=== PATIENT | male | born 1955 | race Caucasian/White ===

== ENCOUNTER 2017-06-16 12:11 | Inpatient (IN) | payer MEDICARE ==
[2017-06-16] MEDS ORDERED: ONDANSETRON 4 MG/2 ML VIAL IVP PRN (21:37)
[2017-06-16] MEDS ORDERED: ALPRAZolam 0.25 MG TAB PO PRN (21:37)
[2017-06-16] MEDS ORDERED: ACETAMINOPHEN TAB 325 MG TAB PO PRN (21:37)
[2017-06-16] MEDS ORDERED: Potassium Replacement Protocol 1 EACH MISC MISCELLANE PRN (21:45)
[2017-06-16] MEDS ORDERED: Magnesium Replacement Protocol 1 EACH MISC MISCELLANE PRN (21:45)
[2017-06-16] MEDS ORDERED: FUROSEMIDE 40 MG TAB PO SCH (22:00)
[2017-06-16 22:33] LABS: Basophils % (A) 0 %; Eosinophils # (A) 0.2 k/uL (0-0.7); Eosinophils % (A) 2 %; HCT 28.8 % (39.0-53.0); HGB 9.3 gm/dL (13.0-17.5); Hypochromasia Slight; Lymphocytes # (A) 1.1 k/uL (1.0-4.8); Lymphocytes % (A) 11 %; MCH 26.9 pg (25.0-35.0); MCHC 32.4 g/dL (31.0-37.0); MCV 83.1 fL (80.0-100.0); Mean Platelet Volume 8.1; Monocytes # (A) 0.5 k/uL (0-1.0); Monocytes % (A) 5 %; Neutrophils # (A) 8.4 k/uL (1.3-7.7); Neutrophils % (A) 81 %; Platelet Count 267 k/uL (150-450); Poikilocytosis Slight; RBC 3.47 m/uL (4.30-5.90); RDW 14.3 % (11.5-15.5); WBC 10.4 k/uL (3.8-10.6)
[2017-06-16 22:41] LABS: Anion Gap 4 mmol/L; Blood Urea Nitrogen 20 mg/dL (9-20); Calcium 7.9 mg/dL (8.4-10.2); Carbon Dioxide 31 mmol/L (22-30); Chloride 103 mmol/L (98-107); Glucose 102 mg/dL (74-99); Magnesium 1.6 mg/dL (1.6-2.3); Potassium 3.9 mmol/L (3.5-5.1); Sodium 138 mmol/L (137-145)
[2017-06-16 23:28] LABS: Prothrombin Time 10.2 sec (9.0-12.0)
[2017-06-16] MEDS: HEPARIN SODIUM,PORCINE 5,000 UNIT/ML 1 ML VIAL SQ SCH (23:39)
[2017-06-16] MEDS: METOPROLOL TARTRATE 25 MG TAB PO SCH (23:39)
[2017-06-16] MEDS: ATORVASTATIN 40 MG TAB PO SCH (23:39)
[2017-06-17 06:08] LABS: Glucose,Whole Blood 110 mg/dL (75-99)
[2017-06-17] MEDS: INSULIN ASPART 100 UNIT/ML 1 ML 10 ML VIAL SQ SCH ×7 (06:18→21:48)
[2017-06-17] MEDS: METOPROLOL TARTRATE 25 MG TAB PO SCH ×2 (06:26→20:59)
[2017-06-17] MEDS: PANTOPRAZOLE 40 MG TABLET PO SCH (06:26)
[2017-06-17] MEDS: ASPIRIN 81 MG PO SCH (06:26)
[2017-06-17 06:55] LABS: Basophils % (A) 0 %; Eosinophils # (A) 0.2 k/uL (0-0.7); Eosinophils % (A) 3 %; HCT 25.9 % (39.0-53.0); HGB 8.1 gm/dL (13.0-17.5); Hypochromasia Slight; Lymphocytes % (A) 10 %; MCHC 31.2 g/dL (31.0-37.0); MCV 83.3 fL (80.0-100.0); Mean Platelet Volume 8.1; Monocytes # (A) 0.4 k/uL (0-1.0); Monocytes % (A) 4 %; Neutrophils # (A) 7.7 k/uL (1.3-7.7); Neutrophils % (A) 82 %; Platelet Count 254 k/uL (150-450); Poikilocytosis Slight; RBC 3.11 m/uL (4.30-5.90); RDW 14.6 % (11.5-15.5); WBC 9.4 k/uL (3.8-10.6)
[2017-06-17 07:14] LABS: Anion Gap 7 mmol/L; Blood Urea Nitrogen 19 mg/dL (9-20); Calcium 7.6 mg/dL (8.4-10.2); Carbon Dioxide 28 mmol/L (22-30); Chloride 103 mmol/L (98-107); Glucose 102 mg/dL (74-99); Sodium 138 mmol/L (137-145)
[2017-06-17] MEDS ORDERED: AMOXIC-POT CLAV 500-125 MG 1 EACH TAB PO SCH (09:00)
[2017-06-17] MEDS: HYDROcodone/APAP 5-325MG 1 EACH TAB PO PRN ×2 (09:04→20:57)
--- NOTE | 2017-06-17 10:20 | XR ---
EXAMINATION TYPE: XR chest 1V portable DATE OF EXAM: 06/17/2017 COMPARISON: NONE INDICATION: Heart catheterization, CHF TECHNIQUE: Single frontal view of the chest is obtained. FINDINGS: The heart size is enlarged. The pulmonary vasculature is prominent. There is a right pleural effusion. A consolidation is in the right perihilar region. Consider atelect asis or atypical pulmonary edema. Some mild atelectasis at the left base. IMPRESSION: 1. Clinical correlation recommended for mild congestive heart failure. Right perihilar consolidation may be present. Small right pleural effusion may be present. Follow-up examinations are recommended.
[2017-06-17] MEDS ORDERED: diphenhydrAMINE 25 MG CAP PO PRN (11:22)
[2017-06-17 11:24] LABS: Glucose,Whole Blood 134 mg/dL (75-99)
[2017-06-17] MEDS ORDERED: methylPREDNISolone SOD SUCCI 125 MG/2 ML VIAL IV STA (11:24)
[2017-06-17] MEDS ORDERED: fentaNYL (PF) 50 MCG/ML 2 ML AMP ONE (12:12)
[2017-06-17] MEDS ORDERED: VERAPAMIL 2.5 MG/ML 2 ML AMP ONE (12:12)
[2017-06-17] MEDS ORDERED: LIDOCAINE 2% INJ 20 MG/ML (20 ML MDV) ONE (12:12)
[2017-06-17] MEDS ORDERED: MIDAZOLAM 2 MG/2 ML VIAL ONE (12:12)
[2017-06-17] MEDS ORDERED: HEPARIN SODIUM 1,000 UN/ML (10ML VL) ONE (12:12)
[2017-06-17] MEDS ORDERED: fentaNYL (PF) 50 MCG/ML 2 ML AMP IV ONE (12:40)
[2017-06-17] MEDS ORDERED: LIDOCAINE 2% INJ 20 MG/ML SQ ONE (12:50)
[2017-06-17] MEDS ORDERED: VERAPAMIL SYRINGE (5 MG/10 ML) INTRAARTER ONE (12:53)
[2017-06-17] MEDS ORDERED: IOHEXOL 350 MG/ML 125ML BOTTLE INJ ONE (13:07)
[2017-06-17] MEDS ORDERED: SODIUM CHLORIDE 0.9% 500 ML IV ONE (13:10)
[2017-06-17] MEDS ORDERED: RX INFO: IV CONTRAST WAS GIVEN 1 EACH MISC MISCELLANE PRN (13:29)
[2017-06-17] MEDS ORDERED: SODIUM CHLORIDE 0.9% 1,000 ML IV SCH (13:30)
[2017-06-17] MEDS: TAMSULOSIN 0.4 MG CAP.ER.24H PO SCH (13:42)
[2017-06-17] MEDS: HEPARIN SODIUM,PORCINE 5,000 UNIT/ML 1 ML VIAL SQ SCH ×2 (13:42→20:59)
--- NOTE | 2017-06-17 14:19 | CC ---
CARDIAC CATHETERIZATION REPORT Mr. Macias is 61-year-old male who has not seen a physician in many years, who presented to the hospital at [facility] with cardiac arrest. Underwent CPR. Was intubated and subsequently neurological recovered. He was extubated and hemodynamically he was stable. He had evidence of myocardial infarction by enzymatic changes and an underlying left bundle branch block of unknown duration. On presentation, he had severe renal failure and severely elevated hemoglobin A1c. His renal failure resolved. Because of the presentation and the findings, recommendation made regarding cardiac catheterization. The procedures as well as risks and complications were discussed with the patient who is in full understanding and agreement. PROCEDURE: Patient was brought to collaborating supervising physician in a fasting semisedated state after receiving fentanyl and Benadryl and achieving moderate conscious sedated state, he was draped and prepped in conventional fashion using Xylocaine anesthesia and Seldinger technique, a 6-Indonesian sheath was introduced in the right radial artery. Selective right and left coronary angiography performed using 5-Indonesian 3 and half bend right Melissa and 4 bend left Melissa catheter. Multiple views of the coronary artery including hemiaxial was obtained. Following that, the 6-Indonesian tight pigtail catheter was introduced into the left ventricle and a 30 degree HUMPHREY view of the left ventricle was obtained. Following that, the catheter and sheath were removed. Hemostasis was obtained with deployment of a TR band. There was no immediate complication. Patient is returned to his room in stable condition. Of note, the patient received 4500 units of intravenous heparin as well as intra-arterial verapamil. FINDINGS: FLUOROSCOPY: There was severe calcification involving the left main and the LAD. 1. Left main: This is a large size vessel bifurcating into left circumflex, left anterior descending artery. Left main coronary artery has no evidence of high- grade stenosis. 2. Left anterior descending artery: This is a large-sized vessel reaching to the apex with a wraparound apex segment giving rise to a moderate-sized diagonal branch in mid segment. In the proximal segment of the LAD, there is 90% stenosis. There is not a plaque in the mid LAD of about 60%. 3. Left circumflex: This is a nondominant vessel giving rise to a large obtuse marginal branch. The left circumflex in the mid segment has 2 tandem lesions of about 95%. The rest of the vessel has no high-grade stenosis. 4. Right coronary artery: This vessel is totally occluded in the distal segment with no significant antegrade flow. 5. Collaterals: There are collaterals from the left coronary system toward the distal PDA. 6. Left ventriculogram: Left ventriculogram was performed in the 30 degree HUMPHREY view and revealed dilated left ventricle. The inferoapical wall is severely hypokinetic to akinetic. There was no significant mitral regurgitation. The anterior wall is mildly hypokinetic. The ejection fraction is about 30%. 7. HEMODYNAMICS: There was no gradient across the aortic valve. The left ventricle end-diastolic pressure was 20-24 mmHg. CONCLUSION: 1. Severe triple-vessel disease with occluded right coronary artery of unknown duration. 2. Severely impaired left ventricular systolic function. RECOMMENDATION: In view of the findings, the anatomy as well as the history of diabetes and severe cardiomyopathy, I have recommended to be evaluated for coronary artery bypass grafting. Those findings and recommendations were discussed with the patient and his family who are in full understanding and agreement. DURATION OF THE PROCEDURE: 23 minutes. PERI / ROMEO: [id number] /
[2017-06-17] MEDS ORDERED: MD COMMUNICATION TO PHARMACY 1 EACH MISC PO ONE ×2 (14:26)
[2017-06-17 16:48] LABS: Glucose,Whole Blood 270 mg/dL (75-99)
[2017-06-17] MEDS: MICONAZOLE NITRATE 2% CREAM 14 GM TUBE TOPICAL SCH ×2 (17:01→21:49)
[2017-06-17] MEDS: PIPERACILLIN-TAZOBACTAM 3.375 GM in DEXTROSE/WATER 1 50ML.BAG IVPB SCH ×2 (17:04→23:30)
[2017-06-17] MEDS: LINAGLIPTIN 5 MG TABLET PO SCH (17:06)
[2017-06-17 19:38] LABS: Hemoglobin A1C 13.6 % (4.0-6.0)
[2017-06-17] MEDS: ATORVASTATIN 40 MG TAB PO SCH (20:59)
[2017-06-17] MEDS ORDERED: INSULIN DETEMIR 100 UNIT/ML 10 ML VIAL SQ SCH (21:00)
[2017-06-17] MEDS: FUROSEMIDE 10 MG/ML 4 ML VIAL IV SCH (21:03)
--- NOTE | 2017-06-17 21:03 | P.HPIM ---
History of Present Illness H&P Date: 06/17/17 Chief Complaint: Elevated troponin and altered mental status Patient is a 61-year-old male with a known history of diabetes type 2 and noncompliance with medications was initially admitted to [facility] about a week ago with severe DKA, acute kidney injury with creatinine level 15.0 and uncontrolled diabetes mellitus with HbA1c 17 and altered mental status. Patient was initially intubated due to acute hypoxic respiratory failure on admission and was actually extubated. Patient was found to have reduced ejection fraction on 2-D echocardiogram done at [facility]. With ejection fraction 30-35%. Patient was also found to have elevated troponin level and patient was transferred to [facility] for further cardiac workup. Currently patient denied any chest pain or shortness of breath. Chest x-ray showed clinical correlation recommended for mild CHF. Right perihilar consolidation may be present. Small right pleural effusion may be present. Patient was also having altered mental status and confused at times. Neurologic workup including CT head was negative at [facility]. Patient was seen by cardiology and is planning for cardiac catheterization today. Otherwise blood sugars controlled with Lantus and preprandial insulin dose along with sliding scale. Review of Systems Constitutional: Patient denies any fever or chills . No generalized weakness or weight loss. Abdomen: Patient denied nausea vomiting and diarrhea and abdominal pain. Cardiovascular: Patient denies any chest pain or short of breath no palpitations. Respiratory: patient denied any cough is from production. No shortness of breath Neurologic: Patient denied any numbness or tingling headache. Musculoskeletal: Patient denies any complaints of joint swelling or deformity. Skin: Negative Psychiatric: Confusion altered mental status Endocrine: No heat or cold intolerance. No recent weight gain. Genitourinary: No dysuria or hematuria. All other 14 point ROS negative except the above Past Medical History Past Medical History: No Reported History Additional Past Medical History / Comment(s): possible undiagnosed diabetes mellitus according to [facility] Medical chart. 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 Past Anesthesia/Blood Transfusion Reactions: No Reported Reaction Past Psychological History: Anxiety Smoking Status: Never smoker Past Alcohol Use History: None Reported Past Drug Use History: None Reported - Past Family History Father Family Medical History: Myocardial Infarction ([place]) Additional Family Medical History / Comment(s): from heart attack Medications and Allergies Home Medications Medication Instructions Recorded Confirmed Type No Known Home Medications [No 06/16/17 06/16/17 History Known Home Medications] Allergies Allergy/AdvReac Type Severity Reaction Status Date / Time Mushroom Allergy Severe Anaphylaxis Verified 06/16/17 22:04 Physical Exam Vitals: Vital Signs Temp Pulse Resp BP BP Pulse Ox 06/17/17 08:00 98.6 F 79 16 94/57 93 L 06/17/17 04:32 98.2 F 06/17/17 03:55 100.0 F H 83 20 118/67 93 L 06/16/17 23:33 99.1 F 91 24 116/68 96 06/16/17 20:00 97.3 F L 88 20 99/58 93 L Intake and Output 06/16/17 06/17/17 06/17/17 22:59 06:59 14:59 Intake Total 100 Output Total 675 Balance -575 Intake: Oral 100 Output: Urine 675 Other: Voiding Method Indwelling Catheter Indwelling Catheter Indwelling Catheter # Voids 1 Weight 94.2 kg 85.5 kg PHYSICAL EXAMINATION: Patient is lying in the bed comfortably, no acute distress, awake alert and oriented.. HEENT: Normocephalic. Neck is supple. Pupils reactive. Nostrils clear. Oral cavity is moist. Ears reveal no drainage. Neck reveals no JVD, carotid bruits, or thyromegaly. CHEST EXAMINATION: Trachea is central. Symmetrical expansion. Lung murguia clear to auscultation and percussion. CARDIAC: Normal S1, S2 with no gallops. No murmurs ABDOMEN: Soft. Bowel sounds normal. No organomegaly. No abdominal bruits. Extremities: reveal no edema. No clubbing or cyanosis Neurologically awake, alert, oriented x3 with well-coordinated movements. No focal deficits noted Skin: No rash or skin lesions. Psychiatric: Cooperative. Nonsuicidal Musculoskeletal: No joint swelling or deformity. Normal range of motion. Results CBC & Chem 7: 06/17/17 06:00 06/17/17 06:00 Labs: Abnormal Lab Results - Last 24 Hours (Table) 06/16/17 06/16/17 06/16/17 Range/Units 22:20 22:20 22:20 RBC 3.47 L (4.30-5.90) m/uL Hgb 9.3 L (13.0-17.5) gm/dL Hct 28.8 L (39.0-53.0) % Neutrophils # 8.4 H (1.3-7.7) k/uL Carbon Dioxide 31 H (22-30) mmol/L Glucose 102 H (74-99) mg/dL POC Glucose (mg/dL) (75-99) mg/dL Calcium 7.9 L (8.4-10.2) mg/dL Troponin I 0.961 H* (0.000-0.034) ng/mL 06/17/17 06/17/17 06/17/17 Range/Units 05:57 06:00 06:00 RBC 3.11 L (4.30-5.90) m/uL Hgb 8.1 L (13.0-17.5) gm/dL Hct 25.9 L (39.0-53.0) % Neutrophils # (1.3-7.7) k/uL Carbon Dioxide (22-30) mmol/L Glucose 102 H (74-99) mg/dL POC Glucose (mg/dL) 110 H (75-99) mg/dL Calcium 7.6 L (8.4-10.2) mg/dL Troponin I (0.000-0.034) ng/mL Thrombosis Risk Factor Assmnt - DVT/VTE Prophylaxis DVT/VTE Prophylaxis: Pharmacologic Prophylaxis ordered - Choose All That Apply Any of the Below Risk Factors Present?: Yes Each Factor Represents 1 point: Age 41-60 years, Swollen legs (current) Thrombosis Risk Factor Assessment Total Risk Factor Score: 2 Thrombosis Risk Factor Assessment Level: Low Risk Assessment and Plan Assessment: Elevated troponin likely due to non-ST elevated [place] Acute CHF with systolic dysfunction ejection fraction 30-35%. Elevated BNP Normocytic anemia Recent Acute kidney injury. Was resolved Recent DKA resolved Diabetes type 2 Hypertension Altered mental status possible metabolic encephalopathy DVT prophylaxis Plan: Patient will be continued on telemetry monitoring. Continue with Lasix and cardiology is planning for catheterization. Serial EKG. Monitor renal function and insulin dosing for better blood sugar control. Neurology was consulted as well for his altered sensorium. We will continue the current management and further recommendations based on the clinical course. Discussed with his at bedside in detail. Time with Patient: Greater than 30
--- NOTE | 2017-06-17 21:12 | US ---
EXAMINATION TYPE: US carotid duplex BILAT DATE OF EXAM: 06/17/2017 COMPARISON: NONE CLINICAL HISTORY: pre-op cardiac surgery. Technically difficult study, patient unable to cooperate with examiner although patient tried, at mikael es he was uncooperative. EXAM MEASUREMENTS: RIGHT: Peak Systolic Velocity (PSV) cm/sec ----- Right CCA: 82.0 ----- Right ICA: 71.6 ----- Right ECA: 96.8 ICA/CCA ratio: 0.9 RIGHT: End Diastole cm/sec ----- Right CCA: 16.8 ----- Right ICA: 14.2 ----- Right ECA: 11.1 LEFT: Peak Systolic Velocity (PSV) cm/sec ----- Left CCA: 70.9 ----- Left ICA: 70.4 ----- Left ECA: 100.5 ICA/CCA ratio: 1.0 LEFT: End Diastole cm/sec ----- Left CCA: 20.8 ----- Left ICA: 25.2 ----- Left ECA: 5.2 VERTEBRALS (direction of flow): Right Vertebral: Antegrade Left Vertebral: Antegrade Rhythm: Normal No significant velocity elevations. IMPRESSION: There is antegrade flow in the vertebral arteries. The images and measurements suggest l ess than 25% stenosis in both internal carotid arteries. Criteria for Assigning % of Stenosis / Diameter reduction (Estimation based on the indirect measurements of the internal carotid artery velocities (ICA PSV). 1. Normal (no stenosis)=ICA PSV < 125 cm/s: ratio < 2.0: ICA EDV<40 cm/s. 2. Less than 50% stenosis=ICA PSV < 125 cm/s: ratio < 2.0: ICA EDV<40 cm/s. 3. 50 to 69% stenosis=ICA PSV of 125 to 230 cm/s: ration 2.0 ? 4.0: ICA EDV 40-100 cm/s. 4. Greater than 70% stenosis to near occlusion= ICA PSV > 230 cm/s: ratio > 4.0: ICA EDV > 100 cm/s. 5. Near occlusion= ICA PSV velocities may be low or undetectable: variable ratio and ICA EDV. 6. Total occlusion=unable to detect flow.
[2017-06-17 21:15] LABS: Glucose,Whole Blood 331 mg/dL (75-99)
--- NOTE | 2017-06-17 23:01 | CONS ---
CONSULTATION DATE OF SERVICE: 06/17/2017 REASON FOR CONSULTATION: 1. Pneumonia. 2. Bilateral groin area cutaneous candidiasis. HISTORY OF PRESENT ILLNESS: The patient is a 61-year-old male who initially presented to [facility] after the patient had a cardiac arrest at home, status post CPR in the field. Subsequently he was successfully resuscitated and was extubated. The patient did have evidence of bacteremia on admission; it was thought to be more likely contamination with multiple pathogens. Blood culture was drawn in the ER. He did have a fever with evidence of pneumonia, likely of aspiration etiology, for which the patient was treated with Zosyn and recently transitioned to oral Augmentin. Subsequently the patient was transferred to [facility] for cardiac catheterization, which is scheduled for this afternoon. The patient was seen on rounds early this morning. Patient did have a low-grade fever last night. The patient was mostly complaining of pain in his bilateral groin and testicular area. The pain started yesterday. Pain is described to be burning, 5 to 6 out of 10, and no radiation. There is no skin breakdown or any drainage. He continues to have some cough but is not bringing up any sputum. No worsening chest pain. No nausea, no vomiting and no diarrhea. REVIEW OF SYSTEMS: CONSTITUTIONAL: Positive for weakness and a low-grade fever. EYES: No complaint. ENT: No complaint. RESPIRATORY: As per HPI. CARDIOVASCULAR: As per HPI. GENITOURINARY: As per HPI. GASTROINTESTINAL: No complaint. MUSCULOSKELETAL: No complaint. INTEGUMENTARY: No complaint. PSYCHOLOGICAL: No complaint. ENDOCRINE: No complaint. NEUROLOGICAL: No complaint. PAST MEDICAL HISTORY: 1. Hypertension. 2. Benign prostatic hypertrophy. 3. Diabetes mellitus, insulin-dependent. 4. Hyperlipidemia. 5. Gastroesophageal reflux disease. SOCIAL HISTORY: Denies smoking, drinking or drug use. Currently lives with his . FAMILY HISTORY: No pertinent findings noticed. ALLERGIES: NO KNOWN DRUG ALLERGIES. CURRENT MEDICATIONS: 1. Tylenol. 2. [place]. 3. Xanax. 4. Aspirin. 5. Lipitor. 6. Benadryl. 7. Lasix. 8. NovoLog. 9. Levemir. 10.Tradjenta. 11.Zestril. 12.Lopressor. 13.Zofran. 14.Protonix. 15.Augmentin. 16.Flomax. PHYSICAL EXAMINATION: Blood pressure 118/70 with a pulse of 90, temperature 97. He is 95% on room air. General description is a middle-aged male lying in bed in no distress. HEENT EXAMINATION: Slight pallor. No scleral icterus. Oral mucosa membrane is dry. NECK: Trachea is central. No thyromegaly. LUNGS: Unlabored breathing. Decreased breath sounds in the bases. No wheeze. HEART: S1, S2. Regular rate and rhythm. ABDOMEN: Soft. No tenderness. No guarding or rigidity. Bilateral groin area with evidence of cutaneous candidiasis but no cellulitis. EXTREMITIES: No edema of the feet. SKIN EXAMINATION: No rash or mass palpable. Neurologically patient is awake, alert, oriented x3. Mood and affect normal. LABS: Hemoglobin 8.1, white count 9.4 with a BUN of 19, creatinine 0.97. DIAGNOSTIC IMPRESSION AND PLAN: 1. Patient with a component of aspiration pneumonia likely, after which the patient did have cardiac arrest and resuscitation. Sputum was negative for any resistant pathogen. However, once transitioned to oral Augmentin the patient did have a fever. 2. Patient with bilateral groin area of cutaneous candidiasis. PLAN: 1. We will try to obtain sputum for Gram stain and culture and sensitivity. 2. If the patient spikes any further fever, to be re-cultured . 3. Will discontinue the Augmentin and start the patient on Zosyn 3.375 grams IV q.8 hours. 4. Miconazole cream to bilateral groin area. 5. We will follow up on the clinical condition and culture to further adjust medication if needed. was present at the bedside. Her questions and concerns were answered. MMODL / IJN: [id number] /
[2017-06-18 04:28] VITALS: BP 124/68; PULSE 77; RESP 16; TEMP 96.6
[2017-06-18] MEDS: PANTOPRAZOLE 40 MG TABLET PO SCH (06:03)
[2017-06-18 06:24] LABS: Glucose,Whole Blood 290 mg/dL (75-99)
[2017-06-18] MEDS: INSULIN ASPART 100 UNIT/ML 1 ML 10 ML VIAL SQ SCH ×2 (06:50)
--- NOTE | 2017-06-18 07:32 | XR ---
EXAMINATION TYPE: XR chest 2V DATE OF EXAM: 06/18/2017 COMPARISON: 06/17/2017 HISTORY: 61-year-old male preop cardiac surgery TECHNIQUE: Frontal and lateral views FINDINGS: Persistent very low lung volumes. Heart suspected mildly enlarged. Perihilar interstitial patchy airs pace opacities persist, right greater than left with slight interval improvement. Continued elevation of the right hemidiaphragm. Small effusions persist. IMPRESSION: 1. Continued marked hypoventilatory changes along with asymmetric elevation of the right hemidiaphrag m. 2. Suspect continued CHF with pulmonary vascular congestion/interstitial edema with slight improvemen t from prior. More confluent opacity at the right hilum persists. 3. Small effusions with adjacent atelectasis and/or consolidation.
--- NOTE | 2017-06-18 08:22 | PN ---
PROGRESS NOTE Mr. Macias a 61-year-old male who presented to [facility] with sudden cardiac arrest, was intubated and subsequently extubated. He had evidence of severe ischemic cardiomyopathy as well as non ST-segment elevation myocardial infarction. His baseline EKG showed left bundle branch block. He underwent cardiac catheterization that revealed severe triple-vessel coronary artery disease with severely impaired left ventricular systolic function. He was referred for surgical consultation for coronary artery bypass grafting in view of the diabetes and the severe triple-vessel disease. This morning he is feeling well. He is denying any chest pain. His breathing has been stable. He denies any dizziness or palpitation. He denies any nausea or vomiting. I reviewed with him as well as his the findings in detail. The patient is adamantly refusing any surgical intervention or angioplasty or stenting. He is insisting on going home today understanding the risks. I have discussed those finding in detail with him. I have discussed with him that if he chooses to leave today, he will be leaving AGAINST MEDICAL ADVICE. He will be further evaluated by his primary care physician and further recommendations will be done at that time. MMPIERREL / LIGIAN: [id number] / TRACY
[2017-06-18] MEDS: METOPROLOL TARTRATE 25 MG TAB PO SCH (08:50)
[2017-06-18] MEDS: ASPIRIN 81 MG PO SCH (08:50)
[2017-06-18] MEDS: TAMSULOSIN 0.4 MG CAP.ER.24H PO SCH (08:51)
[2017-06-18] MEDS ORDERED: LISINOPRIL 5 MG TAB PO SCH (09:00)
[2017-06-18] MEDS ORDERED: LISINOPRIL 2.5 MG TAB PO SCH (09:00)
[2017-06-18] MEDS: PIPERACILLIN-TAZOBACTAM 3.375 GM in DEXTROSE/WATER 1 50ML.BAG IVPB SCH (09:01)
[2017-06-18] MEDS: HEPARIN SODIUM,PORCINE 5,000 UNIT/ML 1 ML VIAL SQ SCH (09:01)
[2017-06-18] MEDS: LINAGLIPTIN 5 MG TABLET PO SCH (09:01)
[2017-06-18] MEDS: FUROSEMIDE 10 MG/ML 4 ML VIAL IV SCH (09:01)
[2017-06-18] MEDS: MICONAZOLE NITRATE 2% CREAM 14 GM TUBE TOPICAL SCH (09:02)
--- NOTE | 2017-06-18 09:59 | P.GSCN ---
<Karolyn Ruff - Last Filed: 06/18/17 09:47> History of Present Illness Consult date: 06/17/17 Reason for Consult: Severe triple vessel coronary artery disease, surgical revascularization recommendations. Requesting physician: Macey Lopez History of present illness: This 61-year-old gentleman with a previous medical history of diabetes, systolic and diastolic heart failure, chronic kidney disease, and cardiomyopathy presented to [facility] via EMS after cardiopulmonary arrest. He was successfully resuscitated, eventually extubated , and remained hemodynamically stable. The patient demonstrated evidence of myocardial infarction by increase in cardiac enzymes and left bundle branch block present on his EKG. He was transferred to [facility] to undergo cardiac catheterization which demonstrated 90% stenosis in the proximal LAD, 60 % stenotic plaque in the mid LAD, 2 lesions in the left circumflex demonstrating 95% stenosis, totally occluded right coronary artery, and collaterals from the left coronary system toward the distal PDA. LV gram was completed demonstrating a dilated left ventricle, hypokinetic inferoapical wall , and ejection fraction of 30%. Transthoracic echocardiogram was completed at [facility], results are not available at this time but per Dr. Lopez the ejection fraction was 35% and no significant valvular disease was present. Due to the nature of his disease process Dr. Mathis from cardiothoracic surgery was consulted regarding surgical revascularization recommendations. Review of Systems 14 point review of systems was completed and was negative except as noted. Patient states he has generally just not felt good over the previous 8-9 months. States he has not seen a physician or taken any medication in many many years. - Constitutional Reports fatigue, Reports lethargy, Reports poor appetite, Reports weakness, Reports weight loss - Gastrointestinal Reports abdominal pain, Reports nausea Past Medical History Past Medical History: No Reported History, Heart Failure, Diabetes Mellitus, Myocardial Infarction ([place]) Additional Past Medical History / Comment(s): possible undiagnosed diabetes mellitus according to [facility] Medical chart. 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 Past Anesthesia/Blood Transfusion Reactions: No Reported Reaction Past Psychological History: Anxiety Smoking Status: Never smoker Past Alcohol Use History: None Reported Past Drug Use History: None Reported - Past Family History Father Family Medical History: Myocardial Infarction ([place]) Additional Family Medical History / Comment(s): from heart attack at 49 years old Medications and Allergies Home Medications Medication Instructions Recorded Confirmed Type No Known Home Medications [No 06/16/17 06/16/17 History Known Home Medications] Allergies Allergy/AdvReac Type Severity Reaction Status Date / Time Mushroom Allergy Severe Anaphylaxis Verified 06/16/17 22:04 Surgical - Exam Vital Signs Temp Pulse Resp BP Pulse Ox 97.3 F L 88 20 99/58 93 L 06/16/17 20:00 06/16/17 20:00 06/16/17 20:00 06/16/17 20:00 06/16/17 20:00 - General well developed, well nourished, no distress - Eyes deviation - ENT no hearing loss, poor senior living - Neck trachea midline - Respiratory Lung sounds diminished bilaterally. Respirations even, nonlabored. Currently on room air. No chest wall deformities. - Cardiovascular S1, S2 present. Regular rate and rhythm, sinus rhythm on telemetry. Palpable peripheral pulses bilaterally. Bilateral lower extremity edema present. - Abdomen Abdomen: soft, non tender, bowel sounds - Genitourinary Deferred - Rectum Deferred - Integumentary no rash - Neurologic normal coordination - Psychiatric Patient does exhibit short-term forgetfulness, reorients. oriented to time, oriented to person, oriented to place, speech is normal Results - Labs 06/17/17 06:00 06/17/17 06:00 Abnormal Lab Results - Last 24 Hours (Table) 06/16/17 06/16/17 06/16/17 Range/Units 22:20 22:20 22:20 RBC 3.47 L (4.30-5.90) m/uL Hgb 9.3 L (13.0-17.5) gm/dL Hct 28.8 L (39.0-53.0) % Neutrophils # 8.4 H (1.3-7.7) k/uL Carbon Dioxide 31 H (22-30) mmol/L Glucose 102 H (74-99) mg/dL POC Glucose (mg/dL) (75-99) mg/dL Calcium 7.9 L (8.4-10.2) mg/dL Troponin I 0.961 H* (0.000-0.034) ng/mL 06/17/17 06/17/17 06/17/17 Range/Units 05:57 06:00 06:00 RBC 3.11 L (4.30-5.90) m/uL Hgb 8.1 L (13.0-17.5) gm/dL Hct 25.9 L (39.0-53.0) % Neutrophils # (1.3-7.7) k/uL Carbon Dioxide (22-30) mmol/L Glucose 102 H (74-99) mg/dL POC Glucose (mg/dL) 110 H (75-99) mg/dL Calcium 7.6 L (8.4-10.2) mg/dL Troponin I (0.000-0.034) ng/mL 06/17/17 Range/Units 11:18 RBC (4.30-5.90) m/uL Hgb (13.0-17.5) gm/dL Hct (39.0-53.0) % Neutrophils # (1.3-7.7) k/uL Carbon Dioxide (22-30) mmol/L Glucose (74-99) mg/dL POC Glucose (mg/dL) 134 H (75-99) mg/dL Calcium (8.4-10.2) mg/dL Troponin I (0.000-0.034) ng/mL Diabetes panel 06/16/17 06/17/17 Range/Units 22:20 06:00 Sodium 138 138 (137-145) mmol/L Potassium 3.9 4.0 (3.5-5.1) mmol/L Chloride 103 103 (98-107) mmol/L Carbon Dioxide 31 H 28 (22-30) mmol/L BUN 20 19 (9-20) mg/dL Creatinine 1.00 0.97 (0.66-1.25) mg/dL Glucose 102 H 102 H (74-99) mg/dL Calcium 7.9 L 7.6 L (8.4-10.2) mg/dL Calcium panel 06/16/17 06/17/17 Range/Units 22:20 06:00 Calcium 7.9 L 7.6 L (8.4-10.2) mg/dL Pituitary panel 06/16/17 06/17/17 Range/Units 22:20 06:00 Sodium 138 138 (137-145) mmol/L Potassium 3.9 4.0 (3.5-5.1) mmol/L Chloride 103 103 (98-107) mmol/L Carbon Dioxide 31 H 28 (22-30) mmol/L BUN 20 19 (9-20) mg/dL Creatinine 1.00 0.97 (0.66-1.25) mg/dL Glucose 102 H 102 H (74-99) mg/dL Calcium 7.9 L 7.6 L (8.4-10.2) mg/dL Adrenal panel 06/16/17 06/17/17 Range/Units 22:20 06:00 Sodium 138 138 (137-145) mmol/L Potassium 3.9 4.0 (3.5-5.1) mmol/L Chloride 103 103 (98-107) mmol/L Carbon Dioxide 31 H 28 (22-30) mmol/L BUN 20 19 (9-20) mg/dL Creatinine 1.00 0.97 (0.66-1.25) mg/dL Glucose 102 H 102 H (74-99) mg/dL Calcium 7.9 L 7.6 L (8.4-10.2) mg/dL - Imaging Additional studies: Cardiac catheterization films reviewed. Assessment and Plan (1) Cardiac arrest Status: Acute Code(s): I46.9 - CARDIAC ARREST, CAUSE UNSPECIFIED SNOMED Code (s): 815398255 (2) Diabetes mellitus Status: Chronic Code(s): E11.9 - TYPE 2 DIABETES MELLITUS WITHOUT COMPLICATIONS SNOMED Code(s): 44964408 (3) Congestive heart failure Status: Acute Code(s): I50.9 - HEART FAILURE, UNSPECIFIED SNOMED Code(s): 87490198 (4) Family history of premature coronary artery disease Status: Chronic Code(s): Z82.49 - FAMILY HX OF ISCHEM HEART DIS AND OTH DIS OF THE CIRC SYS SNOMED Code(s): 927348802 (5) Triple vessel coronary artery disease Status: Chronic Code(s): I25.10 - ATHSCL HEART DISEASE OF [place] CORONARY ARTERY W/O ANG PCTRS SNOMED Code(s): 152790244 Plan: The patient was seen and examined at the bedside with Dr. Mathis. Chart/ diagnostics were reviewed. Cardiac catheterization films were reviewed with Dr. Lopez. Preoperative testing was ordered. Preoperative teaching initiated. Will discuss plan for surgery dependent on outcome of preoperative testing. Thank you Dr. Lopez for this consult. We look forward to working with you in the care of your patient. Time with Patient: Greater than 30 <DelfinaThomas - Last Filed: 06/21/17 13:14> Surgical - Exam Vital Signs Temp Pulse Resp BP Pulse Ox 97.3 F L 88 20 99/58 93 L 06/16/17 20:00 06/16/17 20:00 06/16/17 20:00 06/16/17 20:00 06/16/17 20:00 Results - Labs 06/17/17 06:00 06/17/17 06:00 Assessment and Plan Plan: The patient was seen and examined. History and physical findings were verified. I agree with the above assessment and plan. The patient is a 61-year -old male who suffered a cardiac arrest last week. He had temporary renal insufficiency which has since returned to normal. From a neurological standpoint, the patient is not quite back to baseline as confirmed by his was at the bedside. He still remains somewhat confused. Cardiac catheterization revealed multivessel coronary artery disease. The patient remains extremely weak and has not been ambulating. The risks, benefits, and alternatives to coronary artery bypass surgery were discussed with the patient and his . All their questions were answered. The patient is not quite sure whether he wishes to proceed with surgery at this time. We will obtain the necessary preoperative workup to better risk stratify him. He is currently hemodynamically stable and chest pain-free. We will follow along with you while he remains hospitalized.
--- NOTE | 2017-06-18 22:46 | CONS ---
CONSULTATION Patient was seen this morning. He was admitted to the hospital on 06/17/2017 for cardiac catheterization. He was transferred from [facility], where patient was admitted with a creatinine of 15, severe acute kidney injury and DKA. His renal function has improved significantly, with serum creatinine now down to 0.97 mg/dL. Patient was taken for cardiac catheterization yesterday which revealed triple- vessel disease, and opinion from Cardiothoracic Surgery was sought. At this time patient states that he is not interested in bypass surgery. He was also noticed to have severe impaired left ventricular function with ejection fraction of 30%. Patient does have some edema. He denies any chest pains or shortness of breath. He is maintained on Lasix. He was also on small dose of WENDY inhibitors. He got a small amount of IV fluids at the time of catheterization. PAST MEDICAL HISTORY: 1. Possible undiagnosed diabetes. 2. Right eye surgery. PAST SOCIAL HISTORY: Negative for smoking, drug abuse or alcohol abuse. MEDICATIONS AT HOME: None prior to admission. ALLERGIES: MUSHROOMS. PHYSICAL EXAMINATION: Patient is comfortable, awake. He is not in any acute distress. Blood pressure is 109/58, heart rate 83 per minute. Patient is afebrile. Currently patient is in the shower. His lungs are not heard. He does have significant edema bilaterally in the lower extremities. TEST LAB TECHNICIAN exam is grossly intact. LABS: Serum creatinine 0.97 from yesterday. Hemoglobin was 8.1 g/dL. We do not have a UA this admission. ASSESSMENT: 1. Acute kidney injury, acute tubular necrosis, currently significantly improved with creatinine down from 15 to 0.97 now. 2. Status post vent-dependent respiratory failure. 3. Status post cardiac arrest. 4. Status post itt-OX-tomwdsenf myocardial infarction. 5. Ischemic cardiomyopathy, ejection fraction 30%. PLAN: Continue to diurese patient. It appears that he will be going against medical advice, and he states that at this time he is not interested in any further cardiac treatment. MMODL / IJN: [id number] /
== END 2017-06-18 10:38 | disposition left against medical advice (07) | DRG 280 ==
LOC: 6SEL 19:33
PROVIDERS: ADMIT Hospitalist; ATTEND Hospitalist
PROC: B2111ZZ Fluoroscopy of Multiple Coronary Arteries using Low Osmolar Contrast (ICD-10-PCS; principal; 2017-06-16)
PROC: B2151ZZ Fluoroscopy of Left Heart using Low Osmolar Contrast (ICD-10-PCS; principal; 2017-06-16)
PROC: 4A023N7 Measurement of Cardiac Sampling and Pressure, Left Heart, Percutaneous Approach (ICD-10-PCS; principal; 2017-06-16)
DX: I21.4 Non-ST elevation (NSTEMI) myocardial infarction (principal); I50.43 Acute on chronic combined systolic (congestive) and diastolic (congestive) heart failure; J69.0 Pneumonitis due to inhalation of food and vomit; E11.10 Type 2 diabetes mellitus with ketoacidosis without coma; E11.22 Type 2 diabetes mellitus with diabetic chronic kidney disease; B37.2 Candidiasis of skin and nail; D64.9 Anemia, unspecified; E78.5 Hyperlipidemia, unspecified; I13.0 Hypertensive heart and chronic kidney disease with heart failure and stage 1 through stage 4 chronic kidney disease, or unspecified chronic kidney disease; F41.9 Anxiety disorder, unspecified; I25.10 Atherosclerotic heart disease of native coronary artery without angina pectoris; I25.5 Ischemic cardiomyopathy; I44.7 Left bundle-branch block, unspecified; K21.9 Gastro-esophageal reflux disease without esophagitis; N18.9 Chronic kidney disease, unspecified; N40.0 Benign prostatic hyperplasia without lower urinary tract symptoms; Z79.4 Long term (current) use of insulin; Z82.49 Family history of ischemic heart disease and other diseases of the circulatory system; Z91.14 Patient's other noncompliance with medication regimen; Z95.1 Presence of aortocoronary bypass graft
CPT/HCPCS: 71045; 71046; 80048; 83036; 83735; 83880; 84484; 85025; 85610; 85730; 87070; 87324; 93458; 93880; 93970